=== PATIENT | male | born 1940 | race Caucasian/White ===

== ENCOUNTER → 2016-08-05 | Outpatient (CLI) | payer MEDICARE, OTHER ==
[~2016-08-05] MED LIST: AMLODIPINE10 MG PO; CARVEDILOL12.5 MG PO; CRESTOR10 MG PO; CRESTOR5 MG PO; LABETALOL HCL100 MG PO; LISINOPRIL40 MG PO
--- NOTE | ~2016-08-05 | ST ---
[place], [place] EXERCISE STRESS TEST REPORT NAME: [facility] [id number] UNIT #: [id number] ROOM: DOCTOR: EVON SPENCER MD BIRTHDATE: [birth year] DOS: 08/05/2016 Lexiscan portion of the Lexiscan Cardiolite. Baseline cardiogram, sinus rhythm with poor R-wave progression, 0.4 mg of Lexiscan, duration of 10 seconds. With Lexiscan, the patient had no chest pain. There was an isolated PVC. Blood pressure and heart rate response was normal. FINAL IMPRESSION: No EKG changes with Lexiscan. No chest pain with Lexiscan. No dysrhythmia with Lexiscan. Blood pressure and heart rate response was normal. Nuclear images will be reported separately. EVON SPENCER MD CM:STRESS:EXERCISE STRESS TEST REPORT [id number] EVON SPENCER MD
== END | disposition home or self-care (01) ==
LOC: CARD 01:50
DX: I25.10 Atherosclerotic heart disease of native coronary artery without angina pectoris (principal); I25.84 Coronary atherosclerosis due to calcified coronary lesion; R93.8 Abnormal findings on diagnostic imaging of other specified body structures; R53.81 Other malaise; Z72.0 Tobacco use

== ENCOUNTER → 2020-12-05 | Outpatient (CLI) | payer MEDICARE ==
[2020-12-05 12:56] LABS: BUN 12 mg/dl (7-24); CREATININE 1.05 mg/dL (0.70-1.30)
== END | disposition home or self-care (01) ==
LOC: CT 11-30 09:00 → LAB 12:07 → CT 13:00
PROVIDERS: Radiology Diagnostic Radiology; ATTEND Urology
DX: N40.0 Benign prostatic hyperplasia without lower urinary tract symptoms (principal); J43.9 Emphysema, unspecified; K57.30 Diverticulosis of large intestine without perforation or abscess without bleeding; D35.00 Benign neoplasm of unspecified adrenal gland; R31.29 Other microscopic hematuria

== ENCOUNTER → 2021-07-26 | Outpatient (CLI) | payer MEDICARE, OTHER | END | disposition home or self-care (01) | LOC: CT 09:23 | PROVIDERS: ATTEND Family Medicine | DX: N40.0 Benign prostatic hyperplasia without lower urinary tract symptoms (principal); R31.9 Hematuria, unspecified; R39.15 Urgency of urination; J43.9 Emphysema, unspecified; J47.9 Bronchiectasis, uncomplicated; K57.30 Diverticulosis of large intestine without perforation or abscess without bleeding; D35.02 Benign neoplasm of left adrenal gland; D35.01 Benign neoplasm of right adrenal gland ==